=== PATIENT | male | born 1985 | race African-American/Black ===

== ENCOUNTER 2017-04-02 15:06 | Emergency (ER) | payer MEDICAID ==
[2017-04-02 15:12] VITALS: BP 130/86
--- NOTE | 2017-04-02 15:45 | ER Document Report ---
ED Eye Complaint - General Chief Complaint: Eye Problem Stated Complaint: EYE IRRITATION Time Seen by Provider: 04/02/17 15:39 Mode of Arrival: Ambulatory Information source: Patient TRAVEL OUTSIDE OF THE [place] IN LAST 30 DAYS: No - HPI Onset: Just prior to arrival Occurred at: Home Quality of pain: No pain - Related Data Allergies/Adverse Reactions: No Known Allergies Allergy (Verified 04/02/17 15:11) Past Medical History - General Information source: Patient - Social History Smoking Status: Never Smoker Cigarette use (# per day): No Chew tobacco use (# tins/day): No Smoking Education Provided: No Family History: None Patient has suicidal ideation: No Patient has homicidal ideation: No Renal/ Medical History: Denies: Hx Peritoneal Dialysis Review of Systems - Review of Systems Constitutional: No symptoms reported EENT: No symptoms reported Cardiovascular: No symptoms reported Respiratory: No symptoms reported Gastrointestinal: No symptoms reported Genitourinary: No symptoms reported Male Genitourinary: No symptoms reported Musculoskeletal: No symptoms reported Skin: No symptoms reported Hematologic/Lymphatic: No symptoms reported Neurological/Psychological: No symptoms reported Physical Exam - Vital signs Vitals: Temp Pulse Resp BP Pulse Ox 98.6 F 90 18 130/86 H 97 04/02/17 15:11 04/02/17 15:11 04/02/17 15:11 04/02/17 15:11 04/02/17 15:11 Interpretation: Normal - General General appearance: Appears well, Alert - HEENT Head: Normocephalic, Atraumatic Eyes: Normal Conjunctiva: Injected Extraocular movements intact: Yes Eyelashes: Normal Pupils: PERRL Visual acuity- Right eye: 20/20 Visual acuity- Left eye: 20/25 Visual acuity- Both eyes: 20/20 Corrective lenses worn: No Lids everted for exam: right: Normal Nerve palsy: No Visual lyman normal: Yes - Respiratory Respiratory status: No respiratory distress Chest status: Nontender Breath sounds: Normal Chest palpation: Normal - Cardiovascular Rhythm: Regular Heart sounds: Normal auscultation Murmur: No - Abdominal Inspection: Normal Distension: No distension Bowel sounds: Normal Tenderness: Nontender Organomegaly: No organomegaly - Back Back: Normal, Nontender - Extremities General upper extremity: Normal inspection, Nontender, Normal color, Normal ROM , Normal temperature General lower extremity: Normal inspection, Nontender, Normal color, Normal ROM , Normal temperature, Normal weight bearing. No: Walker's sign - Neurological Neuro grossly intact: Yes Cognition: Normal Orientation: AAOx4 [place] Coma Scale Eye Opening: Spontaneous [place] Coma Scale Verbal: Oriented [place] Coma Scale Motor: Obeys Commands [place] Coma Scale Total: 15 Speech: Normal Motor strength normal: LUE, RUE, LLE, RLE Sensory: Normal - Psychological Associated symptoms: Normal affect, Normal mood - Skin Skin Temperature: Warm Skin Moisture: Dry Skin Color: Normal Course - Re-evaluation Re-evalutation: 04/02/17 15:41 Has had scant yellow discharge with matting in the morning for 3 days he was rubbing his eyes and now has a conjunctival hematoma. 04/02/17 15:45 - Vital Signs Vital signs: Temp Pulse Resp BP Pulse Ox 98.6 F 90 18 130/86 H 97 04/02/17 15:11 04/02/17 15:11 04/02/17 15:11 04/02/17 15:11 04/02/17 15:11 Discharge - Discharge Clinical Impression: Conjunctivitis Qualifiers: Conjunctivitis type: acute Acute conjunctivitis type: bacterial Laterality: left Qualified Code(s): H10.32 - Unspecified acute conjunctivitis, left eye Disposition: HOME, SELF-CARE Instructions: Conjunctivitis ([facility]), Antibiotic Therapy ([facility]), Eyedrop Use ([facility]) Additional Instructions: Conjunctivitis You have an infection in your eye, commonly known as "pink eye." Conjunctivitis causes redness, mild discomfort, itching, and mattering on the eyelids. It is very contagious, so you must be careful to wash your hands after touching your face so you don't pass the infection on to others. Conjunctivitis is caused by both viruses and bacteria. It usually responds quickly to treatment with antibiotic drops. These should be placed in the eye as prescribed (usually every three to four hours while you're awake). If you wear contact lenses, don't put them in your eyes until the infection is cleared and you are no longer using the drops (unless your doctor advises you otherwise). Should you develop increasing eye pain, severe swelling, decreased vision, or fail to improve as expected, please return for re-examination. Subconjunctival Hemorrhage You've had an episode of bleeding between the sclera (white of the eye) and the membrane which covers it. While ugly, this bleeding is not dangerous in any way. Your eye has been examined to ensure that no internal hemorrhage is present. While subconjunctival hemorrhage can be caused by a minor injury, it is usually due to coughing, sneezing, straining, or rubbing the eye. There is no specific treatment. Expect the red area to spread considerably. Avoid rubbing the eye. It may take two or three weeks for the blood to clear. If you have any pain, discharge from the eye, or problems with your vision , call the doctor or return immediately for re-evaluation. Follow-up with private doctor in 1 to 2 days for final radiology readings please return to the emergency room for any change worsening condition. Follow up with private M.D. for all other routine health care needs. Prescriptions: Sulfacetamide Sodium [Bleph-10] 2 drop OD Q4H #5 ml
== END 2017-04-02 16:10 | disposition home or self-care (01) ==
LOC: ER 15:06
DX: H10.32 Unspecified acute conjunctivitis, left eye (principal)
CPT/HCPCS: 99283

== ENCOUNTER 2017-05-23 01:46 | Emergency (ER) | payer OTHER, MEDICAID ==
[2017-05-23] MEDS ORDERED: NORMAL SALINE 1000 ML 1,000 ML IV ONE (04:11)
[2017-05-23] MEDS ORDERED: HYDROMORPHONE HCL INJ/PF 2 MG/ML AMPULE IV ONE (04:11)
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
[2017-05-23] MEDS ORDERED: LIDOCAINE 1% INJ-PF (10 MG/ML) 30 ML SDV INJ ONE (05:31)
--- NOTE | 2017-05-23 05:57 | RADIOLOGY REPORT (SQ) ---
EXAM DESCRIPTION: CT HEAD WITHOUT COMPLETED DATE/TIME: 05/23/2017 5:30 am REASON FOR STUDY: trauma COMPARISON: CT brain 01/14/2007. TECHNIQUE: Axial images acquired through the brain without intravenous contrast. Images reviewed wi th bone, brain and subdural windows. Images stored on PACS. All CT scanners at this facility use dose modulation, iterative reconstruction, and/or weight based d osing when appropriate to reduce radiation dose to as low as reasonably achievable (ALARA). [facility]: Dose Right [facility]: CareDose [facility]: Dose Right [facility]: Teradose 4D [facility]: Smart Saplo RADIATION DOSE: Up-to-date CT equipment and radiation dose reduction techniques were employed. CTDIv ol: 64.6 mGy. DLP: 1292 mGy-cm. mGy. LIMITATIONS: None. FINDINGS: VENTRICLES: Normal size and contour. CEREBRUM: No mass effect. No hemorrhage. No midline shift. Normal parker/white matter differentiatio n. No evidence for acute territorial infarction. CEREBELLUM: No mass effect. No hemorrhage. No alteration of density. No evidence for acute infarct ion. EXTRAAXIAL SPACES: No fluid collections. ORBITS AND GLOBE: Symmetrical contour of the globes. CALVARIUM: No depressed skull fracture. PARANASAL SINUSES: No air-fluid level. SOFT TISSUES: No hematoma. IMPRESSION: No acute intracranial hemorrhage or depressed calvarial fracture. TECHNICAL DOCUMENTATION: JOB ID: [id number] [facility] Quality ID # [id number]: Final reports with documentation of one or more dose reduction techniques (e.g., Au tomated exposure control, adjustment of the mA and/or kV according to patient size, use of iterative reconstruction technique) 2010 [email or web address]- All Rights Reserved
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
[2017-05-23] MEDS ORDERED: OXYCODONE-ACETAMINOPHEN 5-325 MG TABLET PO ONE ×2 (06:49→10:58)
[2017-05-23 07:27] LABS: ANION GAP 10 (5-19); BLOOD UREA NITROGEN 9 mg/dL (7-20); CALCIUM 8.8 mg/dL (8.4-10.2); CARBON DIOXIDE 27 mmol/L (22-30); CHLORIDE 102 mmol/L (98-107); CREATININE RESULT 0.87 mg/dL (0.52-1.25); GLUCOSE 94 mg/dL (75-110); POTASSIUM 4.3 mmol/L (3.6-5.0)
--- NOTE | 2017-05-23 09:46 | RADIOLOGY REPORT (SQ) ---
EXAM DESCRIPTION: MRI CERVICAL SPINE WITHOUT COMPLETED DATE/TIME: 05/23/2017 9:15 am REASON FOR STUDY: rule out ligamentous injury COMPARISON: CT from earlier. MRI from 08/10/2013. TECHNIQUE: Sagittal and Axial imaging includes T1, T2, STIR and gradient echo sequences. LIMITATIONS: None. FINDINGS: ALIGNMENT: Reversal of the upper cervical curvature without subluxation. Chronic but more pronounced compared to 2012. VERTEBRAE: Intact. BONE MARROW: Normal. No marrow replacement or reactive changes. DISCS: Decreased disc signal and height at C3-4 through C6-7. HARDWARE: None in the spine. CORD AND BASE OF BRAIN: Normal in size and signal intensity. SOFT TISSUES: No soft tissue masses. C1-C2: No significant spinal stenosis. C2-C3: No significant spinal stenosis or exit foraminal stenosis. C3-C4: Minimal disc osteophyte complex contacts the cord without compression. No stenosis. C4-C5: Mild disc osteophyte complex contacts the cord but the central canal remains relatively widely patent. Patent neural foramina. C5-C6: Mild disc osteophyte complex contacts the cord. No significant spinal stenosis. C6-C7: Disc osteophyte complex with superimposed mild broad central protrusion contacts the ventral a spect of the cord but no evidence of high-grade central or foraminal stenosis. C7-T1: Minimal right foraminal narrowing. UPPER THORACIC: Incompletely imaged. No significant spinal stenosis or exit foraminal stenosis. OTHER: No other significant finding. IMPRESSION: 1. Reversal of the normal cervical curve. This looks chronic but progressive compared to 2012. There is multilevel disc disease. Disc osteophyte complexes with at least 1 C6-7 small modesta tral protrusion contacts the ventral cord without overt cord compression or high-grade central stenos is. No fracture or worrisome bone lesion. TECHNICAL DOCUMENTATION: JOB ID: [id number] [employer]- All Rights Reserved
[2017-05-23 11:36] VITALS: BP 141/80
== END 2017-05-23 11:36 | disposition home or self-care (01) ==
LOC: ER 01:46
PROC: 0HQFXZZ Repair Right Hand Skin, External Approach (ICD-10-PCS; principal; 2017-05-23)
DX: S61.411A Laceration without foreign body of right hand, initial encounter (principal); M54.2 Cervicalgia; R07.81 Pleurodynia; R10.11 Right upper quadrant pain; M25.562 Pain in left knee; M25.561 Pain in right knee; R51 Headache; V49.9XXA Car occupant (driver) (passenger) injured in unspecified traffic accident, initial encounter; Z88.6 Allergy status to analgesic agent; Z88.0 Allergy status to penicillin
CPT/HCPCS: 99284; 96361; 96374; 36415; 80048; 72141; 71010; 73130; 72170; 73560; 70450; 72125; 74177; 12001; L0172; J3490; J1170; J7030

== ENCOUNTER 2019-07-18 19:05 | Emergency (ER) | payer MEDICAID, OTHER ==
[2019-07-18] MEDS ORDERED: LIDOCAINE 5% (700 MG) TRANSDERMAL ADH..PATCH TP ONE (19:53)
[2019-07-18] MEDS ORDERED: OXYCODONE-ACETAMINOPHEN 5-325 MG TABLET PO ONE (19:53)
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
--- NOTE | 2019-07-18 20:53 | RADIOLOGY REPORT (SQ) ---
XR CHEST 2 VIEWS CLINICAL STATEMENT: fell thru roof, L upper chest pain COMPARISON: 05/23/2017 FINDINGS: Cardiomediastinal silhouette is within normal limits. There is no focal lung consolidation or pleural effusion. No evidence of pulmonary edema or pneumothorax. IMPRESSION: No acute cardiopulmonary disease.
--- NOTE | 2019-07-18 22:11 | RADIOLOGY REPORT (SQ) ---
EXAM DESCRIPTION: XR CHEST 1 VIEW COMPLETED DATE/TME: 07/18/2019 21:42 CLINICAL HISTORY: 34 years, Male, lordotic view, L upper ant rib pain Compared to 07/18/2019 at 8:22 PM. FINDINGS: No evidence for right rib fractures is noted. No pneumothorax. No pleural effusions. IMPRESSION: No evidence for right rib fracture.
[2019-07-18 22:58] VITALS: BP 136/95
== END 2019-07-18 22:56 | disposition home or self-care (01) ==
LOC: ER 19:05
DX: S20.212A Contusion of left front wall of thorax, initial encounter (principal); R07.81 Pleurodynia; X58.XXXA Exposure to other specified factors, initial encounter; F17.200 Nicotine dependence, unspecified, uncomplicated
CPT/HCPCS: 99283; 71046; 71045; J3490